=== PATIENT | female | born 2000 | race Two or more races ===

== ENCOUNTER 2019-02-03 16:51 | Emergency (ER) | payer OTHER ==
[~2019-02-03] VITALS: Ht 152.4 cm; Wt 67.6 kg
== END 2019-02-03 20:22 | disposition home or self-care (01) ==
LOC: ER 16:51
DX: N39.0 Urinary tract infection, site not specified (principal)

== ENCOUNTER 2019-12-22 05:50 | Day surgery (SDC) | payer OTHER | END 2019-12-22 12:45 | disposition home or self-care (01) | LOC: CIR.AMB 05:50 | DX: D26.1 Other benign neoplasm of corpus uteri (principal) ==

== ENCOUNTER → 2022-06-17 | Emergency (ER) | payer OTHER ==
[~2022-06-17] VITALS: Ht 152.4 cm; Wt 67.1 kg
[~2022-06-17] MED LIST: DICLOFENAC SODI75 MG PO
== END | disposition home or self-care (01) ==
LOC: ER 17:06
DX: S93.491A Sprain of other ligament of right ankle, initial encounter (principal); S99.811A Other specified injuries of right ankle, initial encounter; X58.XXXA Exposure to other specified factors, initial encounter; Y93.9 Activity, unspecified; Y92.9 Unspecified place or not applicable

== ENCOUNTER 2022-10-30 08:37 | Emergency (ER) | payer OTHER ==
[~2022-10-30] VITALS: Ht 152.4 cm; Wt 71.7 kg
== END 2022-10-30 10:23 | disposition home or self-care (01) ==
LOC: ER 08:37
DX: L05.01 Pilonidal cyst with abscess (principal); Z88.0 Allergy status to penicillin